=== PATIENT | female | born 1940 | race Caucasian/White ===

== ENCOUNTER 2017-01-04 12:35 | Emergency (ER) | payer OTHER ==
[~2017-01-04] VITALS: Ht 162.6 cm; Wt 61.2 kg
--- NOTE | ~2017-01-04 | EKG ---
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: tasha voss : 1940 Requested By: Mckayla Bruner Order Number: [id number] MD: Mikal Carrillo Measurements Intervals [place] Rate: 88 P: 60 MO: 197 QRS: -35 QRSD: 109 T: 127 QT: 379 QTc: 459 Interpretive Statements Sinus rhythm Incomplete left bundle branch block LVH with secondary repolarization abnormality Anterior Q waves, possibly due to LVH Compared to ECG 11/09/2014 19:45:21 Repolarization abnormality more prominent Sinus bradycardia no longer present Electronically Signed On 01-05-2017 16:39:00 CDT by Mikal Carrillo [email or web address] <ELECTRONICALLY SIGNED> By: Mikal Carrillo MD, [facility] 01/05/17 1639 1245 1245 Mikal Carrillo MD, [facility] /EPI
[~2017-01-04 12:35] MED LIST: ALLOPURINOL 10100 M1 PO; BABY ASA 81MG PO; CRESTOR20 MG PO; FISH OIL 1,0001 EAC5 PO; LASIX; LEVOTHROID88 MCG PO; LISINOPRIL20 MG PO; NEPHROCAPS SOFT1 CAP PO; NEXIUM40 MG PO; NORCO 5-325 TA1 EACH PO; TOPROL XL25 MG PO; VICODIN PO; VITAMIN D1000 UNI1 PO
[2017-01-04 13:32] LABS: ABSOLUTE NEUTROPHILS 3.9 thou/uL (1.4-8.2); BASOPHILS 0.9 % (0.0-2.0); EOSINOPHILS 8.3 % (0.0-3.0); HEMATOCRIT 37.6 % (37.0-47.0); HEMOGLOBIN 12.6 gm/dL (12.0-15.0); LYMPHOCYTES 28.8 % (24.0-44.0); MCH 30.7 pg (26.0-34.0); MCHC 33.5 g/dL (28.0-37.0); MCV 91.7 fL (80.0-100.0); MONOCYTES 6.2 % (1.0-8.0); PLATELET COUNT 150 thou/uL (150-400); POLYS 55.8 % (36.0-66.0); RDW 14.7 % (10.5-14.5)
[2017-01-04 13:37] LABS: MANUAL DIFF NO
[2017-01-04 13:42] LABS: ANION GAP 14 mmol/L (7-16); BUN 39 mg/dL (7-18); CHLORIDE 101 mmol/L (98-107); CO2 20 mmol/L (21-32); CREATININE 2.1 mg/dL (0.6-1.0); GLUCOSE 188 mg/dL (74-106); SODIUM 135 mmol/L (136-145)
[2017-01-04 13:53] LABS: ALBUMIN 4.3 g/dL (3.4-5.0); ALKALINE PHOSPHATASE 93 U/L (46-116); NT-PRO BRAIN NAT PEPTIDE 615 pg/mL (<300); SGOT 33 U/L (15-37); SGPT 31 U/L (30-65); TOTAL BILIRUBIN 0.3 mg/dL (<0.1-1.0); TOTAL PROTEIN 8.4 g/dL (6.4-8.2); TROPONIN-I < 0.04 ng/mL (<0.04-0.07)
[2017-01-04 14:38] LABS: URINE BILIRUBIN NEGATIVE (Negative); URINE BLOOD 1+ (Negative); URINE COLOR YELLOW; URINE GLUCOSE-RANDOM* NEGATIVE (Negative); URINE KETONES NEGATIVE (Negative); URINE NITRITE NEGATIVE (Negative); URINE PROTEIN (DIPSTICK) NEGATIVE (Negative); URINE SPECIFIC GRAVITY <= 1.005 (1.003-1.035); URINE UROBILINOGEN 0.2 E.U./dl (0.2-1.0)
[2017-01-04 14:45] LABS: SQUAMOUS 4-10 Moderate /LPF (0-3)
[2017-01-04 14:47] LABS: BACTERIA 1-9 Few /HPF (None Seen); CASTS None Seen /LPF (None Seen); CRYSTALS None Seen /LPF (None Seen); URINE RBC 0-2 Rare /HPF (0-2); URINE WBC 0-5 Rare /HPF (0-5)
[2017-01-04] MEDS ORDERED: ZANTAC 150MG T150 MG PO (15:05)
[2017-01-04] MEDS ORDERED: ANTIVERT25 MG PO (15:05)
[2017-01-04 15:10] VITALS: BP 151/72
== END 2017-01-04 15:10 | disposition home or self-care (01) ==
LOC: ER 12:35
PROVIDERS: Physician Assistant
DX: R42 Dizziness and giddiness (principal); R10.13 Epigastric pain; R53.1 Weakness; K21.9 Gastro-esophageal reflux disease without esophagitis; I10 Essential (primary) hypertension; E78.00 Pure hypercholesterolemia, unspecified; E11.9 Type 2 diabetes mellitus without complications; Z95.1 Presence of aortocoronary bypass graft